=== PATIENT | female | born 1995 | race Caucasian/White ===

== ENCOUNTER 2018-06-13 19:12 | Emergency (ER) | payer MEDICAID ==
--- NOTE | 2018-06-13 19:39 | ER Report ---
History and Physical Time Seen By MD: 19:39 HPI/ROS CHIEF COMPLAINT: Bilateral ear pressure HISTORY OF PRESENT ILLNESS: 22-year-old female patient persists to emergency room with complaint of bilateral ear pressure. Patient states that she is up visiting from [facility]. She is planning on going skiing tomorrow. She states that as she was traveling that she noticed increasing pain in both ears. She states she has no fevers, chills, nausea, vomiting or diarrhea. Patient states she is not taking any medication for this. 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 She states the pain seemed to get worse and so she decided to come here for further evaluation. Patient states she is not taking any medication for this. She denies any dizziness, nausea, vomiting or diarrhea. Patient denies any sinus congestion, cough or cold. Allergies: Coded Allergies: Penicillins (Verified Adverse Reaction, Unknown, nausea, 06/13/18) Home Meds Reported Medications Escitalopram Oxalate (LEXAPRO) 20 Mg Tablet, 10 MG PO QDAY, TAB 06/13/18 Past Medical/Surgical History Patient has a past medical history of eczema, depression. Patient has a surgical history of wisdom teeth extraction. Reviewed Nurses Notes: Yes Constitutional Vital Sign - Last 24 Hours 06/13/18 19:42 Temp 98.3 Pulse 86 Resp 12 B/P (MAP) 123/79 Pulse Ox 92 O2 Delivery Room Air Physical Exam General appearance: Alert no distress. Respiratory: Chest is non tender, lungs are clear to auscultation. Cardiac: Regular rate and rhythm. ENT: Tympanic membranes are pearly-william, auditory canals are patent, mucous membrane are moist. Patient does seem to have some slightly bulging tympanic membranes, looking into the posterior pharynx she does have some cobblestoning. The bilateral nares do show some erythema, swelling. DIFFERENTIAL DIAGNOSIS: After history and physical exam differential diagnosis was considered for eustachian tube dysfunction, otitis media, upper respiratory infection. Medical Decision Making ED Course/Re-evaluation ED Course Patient was admitted to an exam room, history and physical were obtained. It differential diagnoses were considered. On examination lungs are clear, heart is regular, tympanic membranes are slightly bulging although they are pearly-william, auditory canals are patent. Posterior fracture shows some cobblestoning and mucous membranes in the bilateral nares does seem erythematous and swollen. I believe this is eustachian tube dysfunction. This is best treated with [id number] decongestant. I will go ahead and discharge patient home at this time. She is to take Sudafed as needed. I would like her to start taking that tonight. She is to return to emergency room if condition worsens. She is to follow-up with primary care provider next week. I suspect the underlying cause of this is a viral upper respiratory infection. Decision to Disposition Date: Jun 13, 2018 Decision to Disposition Time: 19:57 Depart Departure Latest Vital Signs Vital Signs Date Time Temp Pulse Resp B/P (MAP) Pulse Ox O2 Delivery O2 Flow Rate FiO2 06/13/18 19:42 98.3 86 12 123/79 92 Room Air Impression: Primary Impression: Acute dysfunction of both eustachian tubes Condition: Improved Disposition: HOME OR SELF-CARE Patient Instructions: Eustachian Tube Dysfunction (GEN) Additional Instructions: Increase fluid intake. Get plenty of rest. Take Sudafed over the counter as needed to help with the ear pressure. You may have some pain with changing elevation, use Tylenol or Ibuprofen as needed for pain. Return to the ER if condition worsens. Follow up with your primary care provider in the next week. OLE SCHWARTZ Jun 13, 2018 19:39
[2018-06-13 19:42] VITALS: BP 123/79
[2018-06-13] MEDS ORDERED: ESCI20TA38 PO (19:45)
== END 2018-06-13 20:03 | disposition home or self-care (01) ==
LOC: ER 19:42
DX: H69.83 Other specified disorders of Eustachian tube, bilateral (principal)
CPT/HCPCS: 99281